=== PATIENT | female | born 1960 | race Caucasian/White ===

== ENCOUNTER 2017-11-28 14:51 | Emergency (ER) | payer BC ==
[2017-11-28] MEDS ORDERED: Ondansetron HCl/PF 4 MG/2 ML Vial ONE (15:14)
[2017-11-28 15:28] LABS: #Basophils 0.1 thou/uL (0.0-0.2); #Lymphocytes 0.7 thou/uL (1.20-3.40); #Monocytes 0.2 thou/uL (0.11-0.59); %Basophils 0.6 % (0.0-1.0); %Eosinophils 0.1 % (0.0-10.0); %Lymphocytes 6.2 % (21.0-51.0); Hemoglobin 13.5 g/dL (12.0-16.0); Mean Corpuscular HGB CONC 32.7 g/dL (32.0-36.0); Mean Corpuscular Hemoglobin 28.7 pg (27.0-31.0); Mean Platelet Volume 8.6 fL (7.4-10.4); Platelet Count 292 thou/uL (130-400); RBC Distribution Width 11.4 % (11.5-14.5); Red Blood Cell (RBC) Count 4.69 mill/uL (4.20-5.40); White Blood Cell (WBC) Count 10.9 thou/uL (4.8-10.8)
[2017-11-28 15:45] LABS: ALT (SGPT) 17 U/L (8-55); AST (SGOT) 22 U/L (5-34); Albumin 4.3 g/dL (3.5-5.0); Alkaline Phosphatase 72 U/L (40-150); Anion Gap 14 mmol/L (10-20); BUN (Urea Nitrogen) 10 mg/dL (9.8-20.1); Bilirubin, Total 0.5 mg/dL (0.2-1.2); Calc. Creatinine Clearance 0 mL/min (70-130); Calcium 9.8 mg/dL (7.8-10.44); Carbon Dioxide 23 mmol/L (22-29); Chloride 108 mmol/L (98-107); Estimated GFR-MDRD 85; Globulin 2.9 g/dL (2.4-3.5); Glucose 119 mg/dL (70-105); Lipase 40 U/L (8-78); Protein, Total 7.2 g/dL (6.0-8.3); Sodium 141 mmol/L (136-145)
[2017-11-28 16:41] LABS: Bilirubin Negative (Negative); Blood, Urine Trace (Negative); Clarity Cloudy (Clear); Glucose, Urine (Dipstick) Negative (Negative); Leukocyte Large (Negative); Nitrite Negative (Negative); Protein, Urine (Dipstick) Negative (Neg-Trace); Specific Gravity, Urine 1.015 (1.005-1.030); Urobilinogen 0.2 mg/dL (0.2-1.0); pH, Urine 7.5 (5.0-9.0)
[2017-11-28 16:46] LABS: Bacteria/HPF 1+ HPF (None Seen); Oval Fat Bodies/HPF 1+ HPF (None Seen); Renal Epithelial 0-3 HPF (0-3); WBC/HPF 21-50 HPF (0-3)
[2017-11-28] MEDS ORDERED: Lidocaine 1% MPF 2 ML VIAL ONE (17:07)
[2017-11-28] MEDS ORDERED: cefTRIAXone\\ROCEPHIN 1 GM VIAL ONE (17:07)
== END 2017-11-28 17:30 | disposition home or self-care (01) ==
LOC: SCSER 14:51
DX: N39.0 Urinary tract infection, site not specified (principal); R11.2 Nausea with vomiting, unspecified; F41.9 Anxiety disorder, unspecified; F32.9 Major depressive disorder, single episode, unspecified; Z79.899 Other long term (current) drug therapy
CPT/HCPCS: 80053; 81003; 81015; 83690; 85025; 87086; 96361; 96372; 96374; J0696; J2405

== ENCOUNTER 2022-05-19 09:37 | Outpatient (CLI) | payer BC ==
[2022-05-19 15:06] LABS: Iron 45 ug/dL (50-170); Transferrin, Serum 251 mg/dL (180-382)
[2022-05-19 15:10] LABS: Band 6 % (5-11); Hemoglobin 13.5 g/dL (12.0-16.0); Lymphocytes 2 % (21-51); MDiff Complete? YES; Mean Corpuscular HGB CONC 32.4 g/dL (32.0-36.0); Mean Corpuscular Hemoglobin 30.3 pg (27.0-31.0); Mean Corpuscular Volume 93.7 fl (78.0-98.0); Mean Platelet Volume 8.6 fL (7.4-10.4); Monocytes 2 % (0-10); Neutrophil 90 % (42-75); Platelet Count 273 10x3/uL (130-400); Platelet Morphology Comment Appears Adequate; RBC Distribution Width 11.9 % (11.5-14.5); RBC Morphology Normal; Red Blood Cell (RBC) Count 4.47 mill/uL (4.20-5.40); White Blood Cell (WBC) Count 10.8 10x3/uL (4.8-10.8)
== END 2022-05-19 09:38 | disposition home or self-care (01) ==
LOC: SCSRAD 09:37
PROVIDERS: ATTEND Family Medicine
DX: K59.00 Constipation, unspecified (principal); K92.2 Gastrointestinal hemorrhage, unspecified
CPT/HCPCS: 36415; 74019; 83540; 84466; 85025

== ENCOUNTER 2023-07-22 01:45 | Inpatient (IN) | payer BC, SELFPAY ==
[2023-07-22] MEDS ORDERED: Acetaminophen 325 MG TAB PO PRN (16:54)
[2023-07-22] MEDS ORDERED: Hydrocortisone Acetate 25 MG Suppository PR PRN (18:22)
[2023-07-22 18:48] VITALS: BMI 23.7
[2023-07-22 19:13] LABS: #Basophils 0.11 10x3/uL (0.0-0.2); %Basophils 1.2 % (0.0-1.0); %Eosinophils 1.8 % (0.0-10.0); %Lymphocytes 21.1 % (21.0-51.0); %Monocytes 6.1 % (0.0-10.0); %Neutrophils 69.7 % (42.0-75.0); Hematocrit 37.7 % (36.0-47.0); Hemoglobin 12.8 g/dL (12.0-16.0); Mean Corpuscular Hemoglobin 29.8 pg (27.0-31.0); Mean Corpuscular Volume 87.7 fL (78.0-98.0); Mean Platelet Volume 10.1 fL (7.4-10.4); Platelet Count 257 10x3/uL (130-400)
[2023-07-22] MEDS: ALPRAZolam 0.25 MG TAB PO PRN (20:58)
[2023-07-22] MEDS: Pantoprazole 40 MG VIAL IVP SCH (20:58)
[2023-07-22 23:54] LABS: #Basophils 0.09 10x3/uL (0.0-0.2); %Basophils 1.1 % (0.0-1.0); %Eosinophils 1.3 % (0.0-10.0); %Lymphocytes 18.1 % (21.0-51.0); %Neutrophils 74.2 % (42.0-75.0); Hematocrit 37.2 % (36.0-47.0); Hemoglobin 12.1 g/dL (12.0-16.0); Mean Corpuscular HGB CONC 32.5 g/dL (32.0-36.0); Mean Corpuscular Hemoglobin 29.4 pg (27.0-31.0); Mean Corpuscular Volume 90.5 fL (78.0-98.0); Mean Platelet Volume 10.4 fL (7.4-10.4); Platelet Count 270 10x3/uL (130-400); RBC Distribution Width 12.9 % (11.5-14.5); Red Blood Cell (RBC) Count 4.11 mill/uL (4.20-5.40)
[2023-07-23] MEDS: Lactated Ringer's 1,000 ML IV SCH (00:29)
[2023-07-23 04:06] LABS: #Basophils 0.08 10x3/uL (0.0-0.2); %Basophils 1.2 % (0.0-1.0); %Eosinophils 2.9 % (0.0-10.0); %Lymphocytes 27.5 % (21.0-51.0); %Monocytes 8.6 % (0.0-10.0); %Neutrophils 59.6 % (42.0-75.0); Hematocrit 37.4 % (36.0-47.0); Hemoglobin 12.5 g/dL (12.0-16.0); Mean Corpuscular HGB CONC 33.4 g/dL (32.0-36.0); Mean Corpuscular Hemoglobin 29.3 pg (27.0-31.0); Mean Corpuscular Volume 87.6 fL (78.0-98.0); Mean Platelet Volume 10.2 fL (7.4-10.4); Platelet Count 266 10x3/uL (130-400); RBC Distribution Width 12.9 % (11.5-14.5); Red Blood Cell (RBC) Count 4.27 mill/uL (4.20-5.40)
[2023-07-23 04:23] LABS: Anion Gap 14 mmol/L (10-20); BUN (Urea Nitrogen) 9 mg/dL (9.8-20.1); Calc. Creatinine Clearance 99 mL/min (70-130); Carbon Dioxide 21 mmol/L (23-31); Chloride 109 mmol/L (98-107); Estimated GFR 101; Glucose 74 mg/dL (80-115); Potassium 3.4 mmol/L (3.5-5.1); Sodium 141 mmol/L (136-145)
[2023-07-23 13:18] VITALS: BP 124/72; TEMP 97.8
== END 2023-07-23 17:19 | disposition home or self-care (01) | DRG 394 ==
LOC: 2SW 16:23 → OBSVTOIN 16:54
PROVIDERS: ADMIT Internal Medicine; ATTEND Internal Medicine
DX: K64.9 Unspecified hemorrhoids (principal); K92.2 Gastrointestinal hemorrhage, unspecified; F41.9 Anxiety disorder, unspecified; K57.30 Diverticulosis of large intestine without perforation or abscess without bleeding; F32.A Depression, unspecified; Z98.890 Other specified postprocedural states; Z82.49 Family history of ischemic heart disease and other diseases of the circulatory system
CPT/HCPCS: 36415; 74177; 80048; 80053; 81001; 83690; 83735; 85014; 85018; 85025; 85610; 87086; C9113; J7120; Q9967